=== PATIENT | female | born 2000 | race African-American/Black ===

== ENCOUNTER 2021-01-29 14:51 | Emergency (ER) | payer SELFPAY ==
--- NOTE | 2021-01-29 14:55 | ED.DIZZY ---
HPI - Dizziness General Chief Complaint: Abdominal Pain Stated Complaint: Stomach Pain/Weakness/Dizzy Time Seen by Provider: 01/29/21 14:56 Source: patient and RN notes reviewed History of Present Illness HPI Narrative: Patient is a 20-year-old female who presents the urgent care with complaints of upper intermittent abdominal pain sometimes before and sometimes after she eats. Patient also reports of some weakness and dizziness. States that her symptoms started on Saturday. Patient states that she did take a test and that she was not . States that her last menstrual cycle was last month at some point. Patient states there could be a chance that she is and would like a test today at the facility. Patient reports of urinary frequency but denies of any pain with urination, urgency, blood in the urine. 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 Patient states that she has had a decrease in appetite but has been keeping down fluids and denies of any vomiting. Patient currently denies of any abdominal pain or nausea. Denies of any fevers. Patient has not taken anything [id number] for her symptoms. no other acute complaints. No acute distress noted. Patient aware of the plan of care. Some parts of this dictation were generated by voice recognition software and may contain typographical and/or grammatical inaccuracies. Related Data Home Medications Medication Instructions Recorded Confirmed No Home Medications 01/29/21 01/29/21 Allergies Allergy/AdvReac Type Severity Reaction Status Date / Time Sulfa (Sulfonamide Allergy Rash Verified 01/29/21 15:00 Antibiotics) Review of Systems Review of Systems: Narrative: CONSTITUTIONAL: Denies fever, chills, or sweats. EYES: Denies visual changes, redness, or discharge. ENT: Denies rhinorrhea, congestion, sore throat, or otalgia. CARDIOVASCULAR: Denies chest pain, palpitations, or edema. RESPIRATORY: Denies cough or dyspnea. GASTROINTESTINAL: Reports of intermittent nausea with intermittent upper abdominal pain GENITOURINARY: Denies dysuria or hematuria. SKIN: Denies rash or itching. MUSCULOSKELETAL: Denies back pain, joint pain, or myalgia. NEUROLOGIC: Reports of weakness All other systems reviewed are negative, except as documented in HPI. PMFSH Comments At the time of my signature, I reviewed and agree with the nursing past medical, surgical, social, and family history. There is no relevant family history pertinent to the patient complaint. Exam Narrative: Exam Narrative: GENERAL: This is a well-nourished, well-developed patient, in no apparent distress. HEAD: normocephalic, atraumatic. EYES: PERRL. Sclera clear/white. Vision is grossly intact. EARS: External ears normal, auditory canals clear and without drainage, TMs normal without perforation. Hearing grossly intact. NOSE: External nose normal with no obvious nasal discharge, nares without redness, no rhinorrhea. THROAT: Mucous membranes moist, posterior pharynx clear. NECK: Neck supple, non-tender without lymphadenopathy CARDIOVASCULAR: Regular rate and rhythm without murmurs, gallops, or rubs. RESPIRATORY: Clear to auscultation. Breath sounds equal bilaterally. No wheezes, rales, or rhonchi. GASTROINTESTINAL: Abdomen soft, non-tender, nondistended. Bowel sounds are active. No guarding. SKIN: warm, intact with no suspicious lesions or rash, good texture and turgor. NEURO: awake, alert, and oriented to person, place and time. There were no obvious focal neurologic abnormalities. EXTREMITIES: No clubbing, cyanosis, or edema. Course Vital Signs Vital signs: Vital Signs Temperature 98.0 F 01/29/21 14:56 Pulse Rate 91 01/29/21 14:56 Respiratory Rate 12 01/29/21 14:56 Blood Pressure 100/84 01/29/21 14:56 Pulse Oximetry 100 01/29/21 14:56 Temperature 98.0 F 01/29/21 15:01 Pulse Rate
[2021-01-29 14:56] VITALS: BP 100/84; PULSE 91; RESP 12; TEMP 36.7; O2SAT 100
[2021-01-29 15:01] VITALS: BP 100/84; PULSE 91; RESP 12; TEMP 36.7; O2SAT 100
== END 2021-01-29 15:27 | disposition home or self-care (01) ==
PROVIDERS: Emergency Provider Nurse Practitioner Family
DX: Z71.1 Person with feared health complaint in whom no diagnosis is made (principal)
CPT/HCPCS: 81003; 81025; 99213; G0463